=== PATIENT | male | born 1940 | race Caucasian/White ===

== ENCOUNTER → 2019-05-18 07:39 | Outpatient (CLI) | payer MEDICARE, SELFPAY ==
--- NOTE | 2019-05-18 07:42 | DI.MRI.S_ITS ---
PROCEDURE: MR CERVICAL SPINE WO CON INDICATIONS: Neck pain, Right arm parasthesia TECHNIQUE: Noncontrast sagittal T1 spin echo and T2 fast spin echo, sagittal STIR, foraminal oblique sagittal T2 fast spin echo, and axial gradient echo or T2 fast spin echo through the cervical spine. COMPARISON: None. FINDINGS: Image quality: Diagnostic Alignment and Curvature: There is normal bony alignment. Bone Marrow: Marrow demonstrates normal overall signal. Spinal Cord: Visualized spinal cord has normal size and signal. No cerebellar tonsillar herniation. Paraspinous Soft Tissues: No paravertebral masses. Prevertebral soft tissues are normal in thickness. C2-C3: The disc height is well-preserved. Loss of disc signal is seen at this level. A mild degree of generalized disc osteophyte complex is seen. Wppa-jy-sicjlhfe facet hypertrophy is seen. Moderate bilateral neural foraminal narrowing is seen. No significant central canal narrowing is seen. C3-C4: The disc height is well-preserved. Loss of disc signal is seen at this level. Caxt-az-yywbacit disc osteophyte complex is seen, which is eccentric to the right. Moderate facet hypertrophy is seen. At least moderate bilateral neural foraminal narrowing is seen. Mild central canal narrowing is seen. C4-C5: The disc height is well-preserved. Loss of disc signal is seen at this level. Moderate generalized disc osteophyte complex is seen. Moderate to severe bilateral neural foraminal narrowing is seen. Moderate central canal narrowing is seen. There is associated mass effect upon the ventral spinal cord. C5-C6: The disc height is well-preserved. Loss of disc signal is seen at this level. Moderate to prominent disc osteophyte complex is seen. There is a central disc osteophyte protrusion, as on series 4 image 28. Uncovertebral joint hypertrophy is seen at this level. There is moderate to severe bilateral neural foraminal narrowing seen. Moderate central canal narrowing is seen. There is associated mass effect upon the ventral spinal cord. C6-C7: Moderate loss of disc height is seen. Loss of disc signal is seen. Moderate disc osteophyte complex is seen. Uncovertebral joint hypertrophy is seen at this level. Jcys-xj-axlqxejm facet hypertrophy is seen. There is moderate to severe bilateral neural foraminal narrowing seen, right worse than left. Moderate central canal narrowing is seen, with minimal associated mass effect upon the ventral spinal cord. C7-T1: Mild loss of disc height is seen. Loss of disc signal is seen. A mild degree of generalized disc osteophyte complex is seen. No significant neural foraminal or central canal narrowing can be seen. IMPRESSION: Multiple levels of cervical spine degenerative change are seen, which are overall most prominent at the C5-C6 level. Dictated by: Zach Zhu M.D. on 05/18/2019 at 8:41 Approved by: Zach Zhu M.D. on 05/18/2019 at 8:45
== END ==
PROVIDERS: PCP Student in an Organized Health Care Education/Training Program; Visit Provider Student in an Organized Health Care Education/Training Program
DX: M62.838 Other muscle spasm (principal); R20.0 Anesthesia of skin; M47.812 Spondylosis without myelopathy or radiculopathy, cervical region
CPT/HCPCS: 72141

== ENCOUNTER → 2020-01-24 14:57 | Outpatient (CLI) | payer MEDICARE, SELFPAY ==
--- NOTE | 2020-01-24 15:04 | DI.RAD.S_ITS ---
PROCEDURE: XR HIP W PEL IF DONE RT 2V INDICATIONS: R hip pain TECHNIQUE: 2 views of the hip were acquired. COMPARISON: None. FINDINGS: Bones: No fractures or dislocations. No suspicious bony lesions. The visualized pelvic ring appears intact. Moderate joint narrowing with periarticular osteophyte formation of the hip joints bilaterally. Degenerative disc and facet disease involves the inferior lumbar spine. Soft tissues: No suspicious soft tissue calcifications or masses. IMPRESSION: Moderate hip joint degeneration bilaterally. Dictated by: Alfredito Ennis [facility] Interpreted: Дмитрий Smith MD on 01/24/2020 at 15:32 Approved by: Дмитрий Smith M.D. on 01/24/2020 at 16:54
[2020-01-24 16:46] LABS: Blood Urea Nitrogen 20 mg/dL (9-20); Calcium 9.2 mg/dL (8.4-10.2); Carbon Dioxide 33 mmol/L (22-32); Chloride 101 mmol/L (98-107); Estimated Glomerular Filt Rate > 60.0 mL/min (>60); Glucose 100 mg/dL (80-110); HEMOLYSIS < 15 (0-50); Potassium 4.1 mmol/L (3.4-5.1); Sodium 138 mmol/L (137-145)
== END ==
PROVIDERS: PCP Student in an Organized Health Care Education/Training Program; Referring Provider Student in an Organized Health Care Education/Training Program; Visit Provider Student in an Organized Health Care Education/Training Program
DX: M25.551 Pain in right hip (principal); M16.0 Bilateral primary osteoarthritis of hip; I10 Essential (primary) hypertension
CPT/HCPCS: 36415; 73502; 80048

== ENCOUNTER → 2020-12-16 09:30 | Outpatient (CLI) | payer MEDICARE, SELFPAY ==
--- NOTE | 2020-12-16 09:34 | DI.RAD.S_ITS ---
PROCEDURE: XR KNEE RT 3V INDICATIONS: Right knee and LE pain TECHNIQUE: 3 views of the knee were acquired. COMPARISON: None. FINDINGS: Bones: The right knee demonstrates tricompartmental degenerative changes and tricompartmental osteophytes. Soft tissues: No joint effusion. No suspicious soft tissue calcifications. IMPRESSION: Tricompartmental degenerative changes consistent with osteoarthritis. Dictated by: Max Fofana M.D. on 12/17/2020 at 14:23 Approved by: Max Fofana M.D. on 12/17/2020 at 14:28
[2020-12-16 10:56] LABS: Add Manual Diff / Slide Review NO; Basophils Absolute Auto 0 /uL (0-100); Basophils Percent Auto 0.4 % (0-2); Eosinophils Absolute Auto 100 /uL (0-450); Eosinophils Percent Auto 1.3 % (2-4); Hematocrit 43.7 % (41-53); Hemoglobin 14.8 g/dL (13.5-17.5); Lymphocytes Absolute Auto 1200 /uL (1100-4500); Lymphocytes Percent Auto 24.9 % (25-40); Mean Corpuscular HGB Conc 33.9 % (30-36); Mean Corpuscular Hemoglobin 32.7 PG (26-34); Mean Corpuscular Volume 96.5 fL (80-100); Monocytes Absolute Auto 300 /uL (0-900); Monocytes Percent Auto 6.8 % (3-14); Neutrophils Absolute Auto 3300 /uL (1500-7000); Neutrophils Percent Auto 66.6 % (50-75); Platelet Count 169 X10^3/uL (150-400); Red Blood Cell Count 4.53 X10^6/uL (4.5-5.9); Red Cell Distribution Width 13.8 % (11.6-14.8)
[2020-12-16 11:15] LABS: Alanine Aminotransferase 22 IU/L (<50); Albumin 4.3 g/dL (3.5-5.0); Albumin Globulin Ratio 1.4 (1.0-2.8); Alkaline Phosphatase 60 U/L (38-126); Aspartate Aminotransferase 32 IU/L (17-59); BUN Creatinine Ratio 20.9 (6-22); Bilirubin Total 0.8 mg/dL (0.2-1.3); Blood Urea Nitrogen 19 mg/dL (9-20); Calcium 9.4 mg/dL (8.4-10.2); Carbon Dioxide 31 mmol/L (22-32); Chloride 103 mmol/L (98-107); Cholesterol 160 mg/dL (140-199); Estimated Glomerular Filt Rate > 60.0 mL/min (>60); Glucose 112 mg/dL (80-110); HDL Cholesterol 68 mg/dL (40-60); HEMOLYSIS < 15 (0-50); LDL Cholesterol Calculated 74 mg/dL (<100); Potassium 4.3 mmol/L (3.4-5.1); Sodium 138 mmol/L (137-145); Total Protein 7.3 g/dL (6.3-8.2); Triglycerides 88 mg/dL (35-150)
[2020-12-16 11:26] LABS: Vitamin D 25 Hydroxy (D3) 47.4 ng/mL (30.0-100.0)
[2020-12-16 11:40] LABS: TSH w/ Reflex to FT4 1.77 uIU/mL (0.47-4.68)
[2020-12-16 12:17] LABS: Folate > 20.0 ng/mL (2.76-20.0); Vitamin B12 430 pg/mL (239-931)
[2020-12-18 17:52] LABS: Albumin 3.7 g/dL (2.9-4.4); Alpha-1-Globulin 0.2 g/dL (0.0-0.4); Alpha-2-Globulin 0.7 g/dL (0.4-1.0); Gamma Globulin 1.1 g/dL (0.4-1.8); Globulin Total 2.9 g/dL (2.2-3.9); Protein, Total 6.6 g/dL (6.0-8.5)
== END ==
PROVIDERS: PCP Student in an Organized Health Care Education/Training Program; Referring Provider Student in an Organized Health Care Education/Training Program; Visit Provider Student in an Organized Health Care Education/Training Program
DX: G62.9 Polyneuropathy, unspecified (principal); E78.2 Mixed hyperlipidemia; E55.9 Vitamin D deficiency, unspecified; Z79.899 Other long term (current) drug therapy; I10 Essential (primary) hypertension; M25.561 Pain in right knee
CPT/HCPCS: 36415; 73562; 80053; 80061; 82306; 82607; 82746; 84155; 84165; 84443; 85025

== ENCOUNTER 2021-07-03 21:38 | Emergency (ER) | payer MEDICARE, SELFPAY ==
[2021-07-03 21:47] VITALS: BP 118/83; PULSE 118; PULSE 121; RESP 18; TEMP 37.5; O2SAT 95
--- NOTE | 2021-07-03 21:55 | DI.RAD.S_ITS ---
PROCEDURE: XR CHEST 1V INDICATIONS: chest pain TECHNIQUE: One view of the chest was acquired. COMPARISON: None. FINDINGS: Surgical changes and devices: None. Lungs and pleura: Lungs are clear. No pneumothorax. Trace bilateral pleural fluid collections. Mediastinum: Mediastinal contours appear normal. Heart size is normal. Bones and chest wall: No suspicious bony lesions. Overlying soft tissues appear unremarkable. IMPRESSION: Trace bilateral pleural fluid collections. Dictated by: Sona Noguera MD, PhD on 07/03/2021 at 22:20 Approved by: Sona Noguera MD, PhD on 07/03/2021 at 22:20
[2021-07-03 22:00] VITALS: BP 124/69; PULSE 113; RESP 28; O2SAT 94
[2021-07-03 22:15] LABS: Add Manual Diff / Slide Review NO; Basophils Absolute Auto 100 /uL (0-100); Basophils Percent Auto 1.2 % (0-2); Eosinophils Absolute Auto 100 /uL (0-450); Eosinophils Percent Auto 0.8 % (2-4); Hematocrit 40.4 % (41-53); Hemoglobin 13.7 g/dL (13.5-17.5); Lymphocytes Absolute Auto 1300 /uL (1100-4500); Lymphocytes Percent Auto 11.4 % (25-40); Mean Corpuscular HGB Conc 33.8 % (30-36); Mean Corpuscular Hemoglobin 31.8 PG (26-34); Monocytes Absolute Auto 1100 /uL (0-900); Monocytes Percent Auto 9.6 % (3-14); Neutrophils Absolute Auto 8500 /uL (1500-7000); Platelet Count 200 X10^3/uL (150-400); Red Cell Distribution Width 13.2 % (11.6-14.8)
[2021-07-03 22:26] LABS: Alanine Aminotransferase 19 IU/L (<50); Albumin 3.8 g/dL (3.5-5.0); Albumin Globulin Ratio 1.2 (1.0-2.8); Alkaline Phosphatase 71 U/L (38-126); Aspartate Aminotransferase 25 IU/L (17-59); BUN Creatinine Ratio 22.4 (6-22); Blood Urea Nitrogen 24 mg/dL (9-20); Calcium 8.1 mg/dL (8.4-10.2); Carbon Dioxide 24 mmol/L (22-32); Chloride 100 mmol/L (98-107); Creatine Kinase 54 U/L (55-170); Estimated Glomerular Filt Rate > 60.0 mL/min (>60); Globulin 3.3 g/dL (1.7-4.1); Glucose 148 mg/dL (80-110); HEMOLYSIS 21 (0-50); Lipase 60 U/L (23-300); Magnesium 1.9 mg/dL (1.6-2.3); Potassium 3.8 mmol/L (3.4-5.1); Sodium 133 mmol/L (137-145); Total Protein 7.1 g/dL (6.3-8.2)
[2021-07-03 22:30] VITALS: BP 105/61; PULSE 90; RESP 24; O2SAT 95
[2021-07-03 22:38] LABS: Troponin I < 0.012 ng/mL (0.01-0.034)
[2021-07-03 23:00] VITALS: BP 110/65; PULSE 91; RESP 25; O2SAT 95
[2021-07-03 23:30] VITALS: BP 120/64; PULSE 86; RESP 23; O2SAT 95
[2021-07-04] VITALS: BP 113/70; PULSE 84; RESP 22; O2SAT 95
--- NOTE | 2021-07-04 00:22 | ED.CHESTPAIN ---
HPI - Chest Pain General Chief Complaint: Chest Pain Stated Complaint: pain rt sided ribs and chest pain, no known injury Time Seen by Provider: 07/03/21 22:47 Source: patient Mode of arrival: Family Vehicle History of Present Illness HPI narrative: 81-year-old gentleman with history of hypertension, hyperlipidemia, BPH, osteoarthritis, peripheral neuropathy presents with a couple of days of intermittent right-sided chest pain located in the lower ribs in between the anterior and posterior axillary lines. The specific sites of tenderness due very, are not consistently present and been bothering him for about 3 days. He is not tried any Tylenol. He recently had some tenderness in his right shoulder was seen by Orthopedics and a steroid shoulder injection was done. There is some minor ecchymosis at the site still. He has been sleeping in a recliner chair due to the shoulder pain over the last number of days. Is not complaining of fever, cough, orthopnea, palpitation, dyspnea, abdominal pain, flank pain, vomiting, diarrhea, lower extremity edema. Related Data Previous Rx's Medication Instructions Recorded metoprolol tartrate 25 mg tablet 12.5 mg PO BID #180 tab 02/10/21 pravastatin 40 mg tablet 40 mg PO BEDTIME #90 tab 02/10/21 tamsulosin 0.4 mg capsule 0.8 mg PO DAILY #180 cap 02/10/21 gabapentin 600 mg tablet 600 mg PO TID #90 tab 06/12/21 Allergies Allergy/AdvReac Type Severity Reaction Status Date / Time No Known Drug Allergies Allergy Verified 07/03/21 21:51 Review of Systems Review of Systems Narrative: Remainder of complete review of systems is otherwise unremarkable except for that included in the HPI. Patient History Medical History Basal cell carcinoma Diverticular disease (~2002) Fractures Hearing loss (~2015) Kidney stones (~1995) Melanoma (~1963) Mumps (~194) Recurrent sinusitis (~2013) Surgical History Anesthesia History of cholecystectomy History of foot surgery (~2013) History of hand surgery (~194) History of knee surgery (~1994) Family History Father Hx of blood clots Mother Diabetes mellitus History of heart disease Sister Cancer Grandfather History of heart disease Grandmother History of heart disease Social History Smoking Status: Former smoker Smoking Status: Former smoker alcohol intake frequency: 0-2 drinks per day Substance Use Type: does not use Exam Initial Vital Signs Initial Vital Signs: Vital Signs Temperature 99.5 F 07/03/21 21:47 Pulse Rate 121 H 07/03/21 21:47 Respiratory Rate 18 07/03/21 21:47 Blood Pressure 118/83 07/03/21 21:47 Pulse Oximetry 95 07/03/21 21:47 General: Healthy appearing, in no acute distress. Able to give a complete and coherent history. Well-nourished well-developed HEENT: Moist mucous membranes, normal sclera with reactive pupils, Neck: No JVD, supple Respiratory: Lungs are clear to auscultation, no wheezing no rales no rhonchi. Full and symmetrical air movement Chest: He has well-healed scar right upper chest area. He has some minor point tenderness along ribs 10/11/12 between anterior and posterior axillary lines. There are no skin changes and the tenderness varies with palpation suggesting this is not an acute bony injury. He does not have any costochondral margin tenderness and does not have any reproducible tenderness with AP compression of his chest wall. Cardiac: Regular rate and rhythm no murmurs no bruits Abdomen: Soft, nontender, good bowel tones, no flank pain Skin: Warm and dry, no rashes Neurologic: Grossly neurologically intact with no obvious asymmetries or abnormalities Extremities: No trauma, well perfused. There is a healing ecchymosis over the right anterior shoulder from recent steroid injection Psych: Cooperative, appropriate insight and affect Course Orders Ordered: ED Orders 07/03/21 21:55 XR chest 1V Stat EKG-12 Lead Stat 07/03/21 22:05 Complete Blood Count AUTO DIFF Stat Comprehensive Metabolic Panel Stat Lipase Stat Magnesium Stat Troponin & CK Cardiac Panel Stat Vital Signs Vital signs: Vital Signs - 8 hr 07/03/21 21:47 Temperature 99.5 F Pulse Rate 121 H Respiratory Rate 18 Blood Pressure 118/83 Pulse Oximetry 95 MDM - Chest Pain Lab Data Result diagrams: 07/03/21 22:05 07/03/21 22:05 Labs: Lab Results 07/03/21 07/03/21 Range/Units 22:05 22:05 WBC 11.0 (4.5-11.0) X10^3/uL RBC 4.30 L (4.5-5.9) X10^6/uL Hgb 13.7 (13.5-17.5) g/dL Hct 40.4 L (41-53) % MCV 94.0 (80-100) fL MCH 31.8 (26-34) PG MCHC 33.8 (30-36) % RDW 13.2 (11.6-14.8) % Plt Count 200 (150-400) X10^3/uL Neut % (Auto) 77.0 H (50-75) % Lymph % (Auto) 11.4 L (25-40) % [place] % (Auto) 9.6 (3-14) % Eos % (Auto) 0.8 L (2-4) % Baso % (Auto) 1.2 (0-2) % Neut # (Auto) 8500 H (9985-3565) /uL Lymph # (Auto) 1300 (8789-2277) /uL [place] # (Auto) 1100 H (0-900) /uL Eos # (Auto) 100 (0-450) /uL Baso # (Auto) 100 (0-100) /uL Sodium 133 L (137-145) mmol/L Potassium 3.8 (3.4-5.1) mmol/L Chloride 100 (98-107) mmol/L Carbon Dioxide 24 (22-32) mmol/L BUN 24 H (9-20) mg/dL Creatinine 1.07 (0.66-1.25) mg/dL Estimated GFR > 60.0 (>60) mL/min BUN/Creatinine Ratio 22.4 H (6-22) Glucose 148 H (80-110) mg/dL Calcium 8.1 L (8.4-10.2) mg/dL Magnesium 1.9 (1.6-2.3) mg/dL Total Bilirubin 1.0 (0.2-1.3) mg/dL AST 25 (17-59) IU/L ALT 19 (<50) IU/L Alkaline Phosphatase 71 (38-126) U/L Total Creatine Kinase 54 L (55-170) U/L CK-MB (CK-2) TNP CK-MB (CK-2) Rel Index TNP Troponin I < 0.012 (0.01-0.034) ng/mL Total Protein 7.1 (6.3-8.2) g/dL Albumin 3.8 (3.5-5.0) g/dL Globulin 3.3 (1.7-4.1) g/dL Albumin/Globulin Ratio 1.2 (1.0-2.8) Lipase 60 (23-300) U/L Imaging Data Chest x-ray: Radiologist's Impression: FINDINGS:? ? Surgical changes and devices:? None.? ? Lungs and pleura:? Lungs are clear.? No pneumothorax.? Trace bilateral pleural fluid collections.? ? Mediastinum:? Mediastinal contours appear normal.? Heart size is normal.? ? Bones and chest wall:? No suspicious bony lesions.? Overlying soft tissues appear unremarkable.? ? IMPRESSION:? Trace bilateral pleural fluid collections. ? ? Dictated by: Sona Noguera MD, PhD on 07/03/2021 at 22:20 ? ? ECG Data Interpretation: Sinus rhythm at a rate of 118 Slight left axis deviation with normal intervals No acute ischemic changes MDM Narrative Medical decision making narrative: 81-year-old gentleman comes in for 3 days of intermittent right-sided chest pain at the request of his and daughter. He recently had a right shoulder injury had a steroid injection has been sleeping in a chair because of this. There is no evidence of pneumonia, metastatic or pathologic bony abnormalities to the ribcage, no pneumothorax, the area of tenderness is variable suggesting superficial musculoskeletal pain rather than anything deeper or fixed. No evidence of infection, shingles, acute coronary syndrome or other life-threatening abnormality that might explain his symptoms. Findings are reviewed with him he declines Tylenol at this point states that the pain has essentially resolved at this time. Encouraged him to return if he has worsening symptoms and at this time he is safe for home discharge Discharge Plan Departure Patient Disposition: Home Clinical Impression: Chest wall pain Instructions: DI for Musculoskeletal Pain Activity Restrictions/Additional Instructions: Thank you for coming in today It is always a good idea to get chest pain checked out. Your chest x-ray was very reassuring. There is no broken ribs no bone abnormalities, no pneumonia, no collapsed lungs. Your lab work is equally reassuring with no evidence of infection, heart attack or kidney, liver or electrolyte abnormalities On your clinical exam, the fact that your point tender in those few spots on the right side suggests musculoskeletal pain rather than anything life-threatening. With the recent injection into your right shoulder it is entirely possible that your using muscles and joints a bit differently which is why your experiencing some of the pain today. It is safe for you to go home. I would recommend using Tylenol if your continuing to have discomfort. If you have new findings or worsening pain, please feel free to return to the ER Prescriptions: No Action tamsulosin 0.4 mg capsule 0.8 mg PO DAILY Qty: 180 3RF metoprolol tartrate 25 mg tablet 12.5 mg PO BID Qty: 180 3RF pravastatin 40 mg tablet 40 mg PO BEDTIME Qty: 90 3RF gabapentin 600 mg tablet 600 mg PO TID Qty: 90 0RF Rx Instructions: Taper on and off with 1/2 tabs Referrals: Kirit Berry MD [Primary Care Provider] -
[2021-07-04 00:30] VITALS: BP 120/82; PULSE 86; RESP 23; O2SAT 94
== END 2021-07-04 00:46 | disposition home or self-care (01) ==
PROVIDERS: Emergency Provider Emergency Medicine; PCP Student in an Organized Health Care Education/Training Program
DX: R07.89 Other chest pain (principal); Z87.891 Personal history of nicotine dependence
CPT/HCPCS: 36415; 71045; 80053; 82550; 83690; 83735; 84484; 85025; 93005; 93010; 99284

== ENCOUNTER → 2021-12-04 13:17 | Outpatient (CLI) | payer MEDICARE, SELFPAY ==
--- NOTE | 2021-12-04 13:18 | DI.RAD.S_ITS ---
PROCEDURE: XR RIBS LT 2V INDICATIONS: Left sided chest wall pain w/o trauma TECHNIQUE: 2 views of the left ribs were acquired. COMPARISON: None. FINDINGS: Surgical changes and devices: None. Bones and chest wall: No fractures or dislocations. No suspicious bony lesions. Overlying soft tissues appear unremarkable. Lungs and pleura: The visualized lung appears clear. No pleural effusions or pneumothorax are visible. IMPRESSION: No evidence of displaced left rib fracture. No evidence acute pulmonary process. Dictated by: Rashid Hawkins M.D. on 12/04/2021 at 15:40 Approved by: Rashid Hawkins M.D. on 12/04/2021 at 15:42
== END ==
PROVIDERS: PCP Student in an Organized Health Care Education/Training Program; Referring Provider Student in an Organized Health Care Education/Training Program; Visit Provider Student in an Organized Health Care Education/Training Program
DX: R07.89 Other chest pain (principal)
CPT/HCPCS: 71100

== ENCOUNTER → 2023-02-01 14:06 | Outpatient (CLI) | payer MEDICARE, SELFPAY ==
[2023-02-01 14:58] LABS: Hematocrit 44.2 % (41-53)
[2023-02-01 15:20] LABS: Alanine Aminotransferase 22 IU/L (<50); Albumin 4.1 g/dL (3.5-5.0); Albumin Globulin Ratio 1.3 (1.0-2.8); Alkaline Phosphatase 63 U/L (38-126); Aspartate Aminotransferase 29 IU/L (17-59); Bilirubin Total 0.8 mg/dL (0.2-1.3); Blood Urea Nitrogen 18 mg/dL (9-20); Calcium 9.3 mg/dL (8.4-10.2); Carbon Dioxide 28 mmol/L (22-32); Chloride 102 mmol/L (98-107); Cholesterol 193 mg/dL (140-199); Estimated Glomerular Filt Rate > 60 mL/min (>60); Globulin 3.2 g/dL (1.7-4.1); Glucose 94 mg/dL (80-110); HDL Cholesterol 70 mg/dL (40-60); HEMOLYSIS < 15 (0-50); LDL Cholesterol Calculated 105 mg/dL (<100); Potassium 4.6 mmol/L (3.4-5.1); Sodium 138 mmol/L (137-145); Total Protein 7.3 g/dL (6.3-8.2); Triglycerides 88 mg/dL (35-150)
[2023-02-01 15:28] LABS: Hemoglobin A1C% w Est Avg Glu 5.6 % (4.0-6.0)
== END ==
PROVIDERS: PCP Family Medicine; Referring Provider Family Medicine; Visit Provider Family Medicine
DX: I10 Essential (primary) hypertension (principal); E78.2 Mixed hyperlipidemia; N40.0 Benign prostatic hyperplasia without lower urinary tract symptoms; G62.9 Polyneuropathy, unspecified; Z00.00 Encounter for general adult medical examination without abnormal findings; Z13.1 Encounter for screening for diabetes mellitus; R73.09 Other abnormal glucose; R73.01 Impaired fasting glucose
CPT/HCPCS: 36415; 80053; 80061; 83036; 85014; 85018

== ENCOUNTER → 2023-10-25 11:22 | Outpatient (CLI) | payer MEDICARE, SELFPAY ==
--- NOTE | 2023-10-25 11:24 | DI.US.S_ITS ---
PROCEDURE: US PERIPH VENOUS LOW EXTREM RT INDICATIONS: eval for hematoma and poss DVT TECHNIQUE: Real-time imaging, as well as color and pulse Doppler interrogation, were performed of the lower extremity deep veins from the inguinal ligament to the popliteal fossa, with documentation of the visualized calf veins. COMPARISON: None. FINDINGS: The common femoral, femoral, popliteal, and the visualized calf veins are normally compressible, and free of intraluminal thrombus. Color and pulse Doppler demonstrate normal phasic intraluminal flow. There is normal augmentation response to distal compression maneuver. 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 No abnormal vascularity can be seen. IMPRESSION: No findings of lower extremity deep venous thrombosis. Diehl's cyst noted. Dictated by: Zach Zhu M.D. on 10/25/2023 at 12:22 Approved by: Zach Zhu M.D. on 10/25/2023 at 12:23
== END ==
PROVIDERS: PCP Family Medicine; Referring Provider Family Medicine; Visit Provider Family Medicine
DX: I82.409 Acute embolism and thrombosis of unspecified deep veins of unspecified lower extremity (principal); M71.21 Synovial cyst of popliteal space [Baker], right knee
CPT/HCPCS: 93971

== ENCOUNTER → 2024-01-05 11:30 | Outpatient (CLI) | payer MEDICARE, SELFPAY ==
[2024-01-05 12:06] LABS: Add Manual Diff / Slide Review NO; Basophils Absolute Auto 0 /uL (0-100); Basophils Percent Auto 0.6 % (0-2); Eosinophils Absolute Auto 100 /uL (0-450); Eosinophils Percent Auto 1.8 % (2-4); Hematocrit 43.1 % (41-53); Hemoglobin 14.8 g/dL (13.5-17.5); Lymphocytes Absolute Auto 1100 /uL (1100-4500); Lymphocytes Percent Auto 19.7 % (25-40); Mean Corpuscular HGB Conc 34.4 % (30-36); Mean Corpuscular Hemoglobin 32.8 PG (26-34); Mean Corpuscular Volume 95.1 fL (80-100); Monocytes Absolute Auto 400 /uL (0-900); Monocytes Percent Auto 7.5 % (3-14); Neutrophils Absolute Auto 4000 /uL (1500-7000); Neutrophils Percent Auto 70.4 % (50-75); Platelet Count 180 X10^3/uL (150-400); Red Blood Cell Count 4.53 X10^6/uL (4.5-5.9); Red Cell Distribution Width 13.7 % (11.6-14.8); White Blood Cell Count 5.7 X10^3/uL (4.5-11.0)
[2024-01-05 12:31] LABS: Alanine Aminotransferase 25 IU/L (<50); Albumin 4.2 g/dL (3.5-5.0); Albumin Globulin Ratio 1.4 (1.0-2.8); Alkaline Phosphatase 64 U/L (38-126); Aspartate Aminotransferase 31 IU/L (17-59); BUN Creatinine Ratio 20.9 (6-22); Bilirubin Total 1.2 mg/dL (0.2-1.3); Blood Urea Nitrogen 23 mg/dL (9-20); Carbon Dioxide 27 mmol/L (22-32); Chloride 103 mmol/L (98-107); Cholesterol 179 mg/dL (140-199); Estimated Glomerular Filt Rate > 60 mL/min (>60); Globulin 3.1 g/dL (1.7-4.1); Glucose 113 mg/dL (80-110); HDL Cholesterol 55 mg/dL (40-60); HEMOLYSIS 17 (0-50); LDL Cholesterol Calculated 105 mg/dL (<100); Potassium 4.5 mmol/L (3.4-5.1); Sodium 137 mmol/L (137-145); Total Protein 7.3 g/dL (6.3-8.2); Triglycerides 96 mg/dL (35-150)
[2024-01-05 16:53] LABS: Creatinine Urine Random 144.19 mg/dL
[2024-01-05 16:55] LABS: Microalbumin Urine Random < 0.6 mg/dL (0-1.6)
== END ==
PROVIDERS: PCP Family Medicine; Referring Provider Family Medicine; Visit Provider Family Medicine
DX: I10 Essential (primary) hypertension (principal); E78.2 Mixed hyperlipidemia
CPT/HCPCS: 36415; 80053; 80061; 82043; 82570; 85025